=== PATIENT | male | born 1960 | race Caucasian/White ===

== ENCOUNTER 2017-02-16 07:33 | Emergency (ER) | payer BC ==
[~2017-02-16] VITALS: Ht 177.8 cm; Wt 97.0 kg
[2017-02-16 07:36] VITALS: TEMP 36.4; Ht 177.8 cm; Wt 97.0 kg
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
[2017-02-16 09:15] VITALS: BP 160/103; PULSE 78; O2SAT 95
== END 2017-02-16 09:15 | disposition home or self-care (01) ==
LOC: C.EDA 07:35 → EDSEX 07:35 → C.EDA 09:15
DX: M25.572 Pain in left ankle and joints of left foot (principal); V20.4XXA Motorcycle driver injured in collision with pedestrian or animal in traffic accident, initial encounter; Y92.488 Other paved roadways as the place of occurrence of the external cause